=== PATIENT | male | born 1990 | race African-American/Black ===

== ENCOUNTER 2017-12-01 14:11 | Emergency (ER) | payer BC ==
[2017-12-01] MEDS ORDERED: ONDANSETRON 4 MG/2 ML VIAL ONE (14:27)
[2017-12-01] MEDS ORDERED: ONDANSETRON 4 MG/2 ML VIAL IVP ONE ×2 (14:30→15:07)
[2017-12-01] MEDS ORDERED: NS 1,000 ML IV ONE ×3 (15:07→18:08)
--- NOTE | 2017-12-01 15:09 | EDPHY ---
H & P Stated Complaint: vomiting and diarrhea 24 hours Time Seen by Provider: 12/01/17 15:04 HPI/ROS: CHIEF COMPLAINT: Vomiting and diarrhea HISTORY OF PRESENT ILLNESS: The patient is a healthy 27-year-old man who comes to the emergency department complaining of nausea, vomiting and diarrhea for the last 16 hr. He states that he felt well yesterday. He did travel from [place] yesterday but did not eat any suspicious foods. He has not been around any known sick contacts. He has not had a fever. He denies abdominal pain. No blood in his vomit or stool. He states that he is now vomiting bile. No symptoms. REVIEW OF SYSTEMS: Constitutional: denies: chills, fever, recent illness, recent injury EENTM: denies: blurred vision, double vision, nose congestion Respiratory: denies: cough, shortness of breath Cardiac: denies: chest pain, irregular heart rate, lightheadedness, palpitations Gastrointestinal/Abdominal: See HPI Genitourinary: denies: dysuria, frequency, hematuria, pain Musculoskeletal: denies: joint pain, muscle pain Skin: denies: lesions, rash, jaundice, bruising Neurological: denies: headache, numbness, paresthesia, tingling, dizziness, weakness Hematologic/Lymphatic: denies: blood clots, easy bleeding, easy bruising Immunologic/allergic: denies: HIV/AIDS, transplant EXAM: GENERAL: Well-appearing, well-nourished and in no acute distress. HEAD: Atraumatic, normocephalic. EYES: Pupils equal round and reactive to light, extraocular movements intact, sclera anicteric, conjunctiva are normal. ENT: TMs normal, nares patent, oropharynx clear without exudates. Tachy mucous membranes. NECK: Normal range of motion, supple without lymphadenopathy or JVD. LUNGS: Breath sounds clear to auscultation bilaterally and equal. No wheezes rales or rhonchi. HEART: Regular rate and rhythm without murmurs, rubs or gallops. ABDOMEN: Nontender, no pain, Soft, normoactive bowel sounds. No guarding, no rebound. No masses appreciated. BACK: No CVA tenderness, no spinal tenderness, step-offs or deformities EXTREMITIES: Normal range of motion, no pitting or edema. No clubbing or cyanosis. NEUROLOGICAL: Cranial nerves II through XII grossly intact. Normal speech, normal gait. 5/5 strength, normal movement in all extremities, normal sensation PSYCH: Normal mood, normal affect. SKIN: Warm, dry, normal turgor, no visible rashes or lesions. Source: Patient Exam Limitations: No limitations - Medical/Surgical History Hx Asthma: No Hx Chronic Respiratory Disease: No Hx Diabetes: No Hx Cardiac Disease: No Hx Renal Disease: No Hx Cirrhosis: No Hx Alcoholism: No Hx HIV/AIDS: No Hx Splenectomy or Spleen Trauma: No Other PMH: ortho surgeries - Family History Significant Family History: No pertinent family hx - Social History Smoking Status: Never smoked Alcohol Use: Sober Drug Use: None Constitutional: Initial Vital Signs Temperature (C) 36.8 C 12/01/17 14:13 Heart Rate 87 12/01/17 14:13 Respiratory Rate 18 12/01/17 14:13 Blood Pressure 137/62 H 12/01/17 14:13 O2 Sat (%) 98 12/01/17 14:13 O2 Delivery Mode Room Air Allergies/Adverse Reactions: No Known Allergies Allergy (Unverified 12/01/17 14:15) Home Medications: Medication Instructions Recorded Ondansetron Odt [Zofran Odt 4 mg 4 mg PO Q4 PRN #20 tab 12/01/17 (RX)] Medical Decision Making ED Course/Re-evaluation: The patient has received 1 L of fluid and 4 mg Zofran by nursing protocol. He states that he is already feeling better. He still looks slightly dehydrated. I will give him another round of each. We will continue to observe. His abdominal exam is benign currently. 3:15 p.m. the patient is beginning to complain of a mild migraine headache which she states is typical for him especially if he gets dehydrated. I will treat him with Reglan and observe. He does not wish to have imaging. 4:00 p.m. the patient is feeling much better after Reglan. His headache is resolved. He is no longer nauseous. His abdominal exam remains benign. I will prepare paperwork for discharge. He would prefer Zofran as a prescription. Differential Diagnosis: Partial list of the Differential diagnosis considered include but were not limited to; gastritis, food poisoning and although unlikely based on the history and physical exam, I also considered appendicitis, biliary disease, obstruction, peptic ulcer disease. I discussed these differential diagnoses and the plan with the patient as well as the usual and expected course. The patient understands that the diagnosis is provisional and that in medicine we are not always correct and that further workup is often warranted. Usual and customary warnings were given. All of the patient's questions were answered. The patient was instructed to return to the emergency department should the symptoms at all worsen or return, otherwise to followup with the physician as we discussed. - Data Points Medications Given: Discontinued Medications Sodium Chloride (Ns) 1,000 mls @ 0 mls/hr IV EDNOW ONE; Wide Open PRN Reason: Protocol Stop: 12/01/17 15:08 Last Admin: 12/01/17 15:26 Dose: 1,000 mls Metoclopramide HCl (Reglan Injection) 10 mg IVP EDNOW ONE Stop: 12/01/17 15:20 Last Admin: 12/01/17 15:26 Dose: 10 mg Ondansetron HCl (Zofran) 4 mg IVP EDNOW ONE Stop: 12/01/17 14:31 Last Admin: 12/01/17 14:30 Dose: 4 mg Ondansetron HCl (Zofran) 4 mg IVP EDNOW ONE Stop: 12/01/17 15:08 Last Admin: 12/01/17 15:44 Dose: Not Given Departure - Departure Disposition: Home, Routine, Self-Care Clinical Impression: Acute gastroenteritis Condition: Good Instructions: Gastroenteritis (ED) Referrals: NONE *PRIMARY CARE P,. [Primary Care Provider] - As per Instructions Stefano Sanchez MD [Medical Doctor] - As per Instructions Prescriptions: Ondansetron Odt [Zofran Odt 4 mg (RX)] 4 mg PO Q4 PRN #20 tab PRN Reason: Nausea & Vomiting
[2017-12-01] MEDS ORDERED: METOCLOPRAMIDE 10 MG/2 ML VIAL IVP ONE (15:19)
[2017-12-01 16:37] VITALS: BP 133/74; PULSE 84; RESP 14; TEMP 98.4; O2SAT 94
== END 2017-12-01 16:15 | disposition home or self-care (01) ==
LOC: CED 14:11
PROC: 3E0337Z Introduction of Electrolytic and Water Balance Substance into Peripheral Vein, Percutaneous Approach (ICD-10-PCS; principal; 2017-12-01)
DX: K52.9 Noninfective gastroenteritis and colitis, unspecified (principal); E86.9 Volume depletion, unspecified
CPT/HCPCS: 96374; J2405; J2765